=== PATIENT | male | born 1950 | race Caucasian/White ===

== ENCOUNTER 2018-09-16 12:35 | Emergency (ER) | payer OTHER ==
--- NOTE | 2018-09-16 13:40 | EDPHY ---
General - History Smoking Status: Never smoked Time Seen by Provider: 09/16/18 13:30 Narrative: CLINICAL IMPRESSION: Right middle finger laceration ASSESSMENT/PLAN: Patient is a 67-year-old male with a history of atrial fibrillation currently on Coumadin who presents for evaluation of right middle finger laceration. Patient is not toxic appearing, he is in no distress. Physical examination reveals approximately 2 cm superficial laceration on the dorsal aspect of the right middle finger, middle phalanx. There is no evidence of deep structure involvement, neurovascular compromise, foreign body, or bony involvement. The wound was not contaminated, tetanus status was already up-to-date. The wound was irrigated and then repaired as discussed in the procedure note, the patient tolerated this well. Wound care instructions discussed with patient. He is well established with his PCP through [facility], he will call to schedule an appointment for wound check. Return precautions discussed- he will return for increased pain, signs of infection, fever, vomiting, if the wound opens or for any other concerns. Patient and family member both verbalize understanding and are in agreement with plan. DIFFERENTIAL DIAGNOSIS: includes but not limited to laceration of tendon or vascular structure, underlying fracture, laceration with retained FB ED PROCEDURES: Laceration Repair Verbal consent obtained by patient. Risks discussed, including but not limited to infection, pain, retained foreign body, need for additional repair, poor cosmetic result, tendon damage, nerve damage, poor wound healing, vascular damage. Alternatives to repair discussed. [place] protocol used to establish correct patient, procedure, equipment, network support analyst, and site. Anesthesia obtained by local infiltration. Anesthetized with 1% lidocaine. Laceration location dorsal aspect of the right middle finger, middle phalanx, length 2 cm, depth 0.3 mm, Repair type simple. Patient was prepped and draped in usual sterile fashion. Hemostasis achieved with direct pressure. Wound explored through full range of motion and entire depth of wound probed and visualized with gloved finger. No suspicion for nerve damage, tendon damage, underlying fracture, vascular damage, foreign body, or contamination. Area was cleansed with Shur-Clens and irrigated with sterile saline as per protocol. No foreign body or material removed. Repair method 5.0 Prolene, simple interrupted. 4 sutures placed. Well aligned, closely approximated. wound was dressed with antibiotic ointment, sterile dressing and splint. Patient tolerated well with no immediate complications. Wound care: Clean and dry x 24 hours, gently clean with soap and water, cover with topical antibiotic ointment/bandage. Suture/Staple removal: 7-10 days Days CHIEF COMPLAINT: Laceration HPI: Patient is a 67-year-old male currently on Coumadin who presents to the emergency department after sustaining a laceration to his right middle finger just prior to arrival. 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 Patient did not hit his head, there was no loss of consciousness. Patient had his INR drawn several weeks ago, it was stable at 2.1. He denies any significant pain or bleeding. He has had no numbness or tingling of the middle finger. He did originally land on his right knee when he fell prior to the face breaking. He complains of an abrasion at this site, denies any knee pain. Patient denies any other injury or complaint PAST MEDICAL HISTORY: Atrial fibrillation, hypertension, hyperlipidemia Social History: Denies smoking, denies illicit drug use REVIEW OF SYSTEMS: All other systems negative Constitutional: No fever, no chills Musculoskeletal: No deformity, no joint pain Skin: Laceration, denies rashes Neurological: No sensory loss or weakness PHYSICAL EXAM: General Appearance: Alert, oriented, appropriate for age, cooperative, NAD, well hydrated, non-toxic appearing, VSS, no hypoxia. Neurological: Alert and oriented x 3 Skin: 2 cm laceration to the dorsal aspect of the right middle finger, middle phalanx partially crossing over the proximal interphalangeal joint Upper Extremities: Intact distal pulses, Full range of motion intact, no ecchymosis or edema. Right middle finger has tenderness at the site of the laceration, full range of motion, each interphalangeal joint was tested independently with full strength. Two point discrimination was intact distally. Lower Extremities: Intact distal pulses, No edema, No tenderness, No cyanosis, full range of motion intact, No calf tenderness bilaterally. Faint abrasion noted overlying the right knee, inferior to the patella. There is no patellar tenderness, no anterior posterior laxity. Full range of motion. MEDICAL DECISION MAKING: Patient was seen independently. Secondary supervising physician at time of evaluation was Dr. Trejo, she did not evaluate this patient. Diagnosis: Right middle finger laceration. New, requires workup Summary: See assessment and plan for summary of ED visit Clinical lab tests: Not applicable. Independent visualization of images, tracing, or specimens yes. Decision to obtain medical records or history from someone other than the patient: No Review / Summarize previous medical records: None available Discussed patient with another provider: Yes, Dr. Trejo (JaidenNancy cherry) Discussion: The patient was evaluated and managed by the Physician [employer] Recruiter. My co- signature indicates that I have reviewed this chart and I agree with the findings and plan of care as documented. I am the secondary supervising physician. (Zaida Trejo) - Objective Vital Signs: Initial Vital Signs Temperature (C) 36.5 C 09/16/18 12:47 Heart Rate 101 H 09/16/18 12:47 Respiratory Rate 18 09/16/18 12:47 Blood Pressure 125/89 H 09/16/18 12:47 O2 Sat (%) 94 09/16/18 12:47 O2 Delivery Mode Room Air Allergies/Adverse Reactions: No Known Allergies Allergy (Unverified 09/16/18 12:46) Home Medications: Medication Instructions Recorded Atorvastatin Calcium 20 mg PO 09/16/18 Lisinopril 5 mg PO 09/16/18 Omeprazole 20 mg PO 09/16/18 Warfarin Sodium 5 mg PO 09/16/18 Departure - Departure Disposition: Home, Routine, Self-Care Clinical Impression: Finger laceration Condition: Good Instructions: Finger Laceration (ED) Additional Instructions: DISCHARGE INSTRUCTIONS FROM YOUR DOCTOR Thank you for visiting our emergency department today. Please keep in mind that discharge from the emergency department does not mean that there is nothing wrong - it simply means that we have not identified an emergency condition that requires further evaluation or treatment in the hospital. You should always plan to follow up with primary care for re-evaluation of your condition in the next 2-3 days. Keep wound clean and dry for 24 hours. Then remove dressing, clean at least twice daily or when soiled with soap and water, apply antibiotic ointment and dressing. Do not soak the wound while the stitches are in place. Elevate hand as much as possible for the next 24 hours to decrease the swelling and pain. Wear the splint to immobilize the finger for the next 2-5 days to facilitate rapid healing. Anticipate suture removal in 7-10 days; please call [facility] to arrange follow-up with your primary care provider for suture removal. Tylenol every 4-6 hours as directed as needed for pain. Do not exceed 4000 mg in 24 hours. Ibuprofen as directed every 6-8 hours with food as needed for pain. Stop for stomach upset. Do not exceed 2400 mg in 24 hours. Continue your regular medications as prescribed. As discussed the laceration was not deep enough to visualize the tendon today. It is unlikely a tendon injury is present and your tendon function is currently intact. However, if at any time, you feel a pop and have difficulty bending or straightening the finger, you should seek re-evaluation from a hand specialist urgently. Return for signs of wound infection ie: redness, swelling, drainage, foul odor, red streaks, fever, chills, pain, bleeding, if the stitches pop, if the wound opens, for numbness, tingling, weakness, discoloration of the finger, coolness of the finger, inability to move or bend the finger or for any other new, worsening or worrisome symptoms. People present with illnesses and injuries in different ways, and it is always possible that we have missed something. You may always return for re-evaluation if symptoms worsen or if they are not improving or if you develop new/different symptoms. Again, thank you for choosing our emergency department. We hope that you feel better. Referrals: Cherry Cowart [Primary Care Provider] - As per Instructions (Schedule an appointment for suture removal in 7-10 days)
[2018-09-16 15:05] VITALS: BP 130/86
== END 2018-09-16 15:05 | disposition home or self-care (01) ==
PROC: 0HQFXZZ Repair Right Hand Skin, External Approach (ICD-10-PCS; principal; 2018-09-16)
DX: S61.212A Laceration without foreign body of right middle finger without damage to nail, initial encounter (principal); I48.91 Unspecified atrial fibrillation; W25.XXXA Contact with sharp glass, initial encounter; Y92.9 Unspecified place or not applicable; Y99.0 Civilian activity done for income or pay; Y93.9 Activity, unspecified; Z79.01 Long term (current) use of anticoagulants